=== PATIENT | female | born 1995 | race Caucasian/White ===

== ENCOUNTER → 2016-09-09 | Outpatient (CLI) | payer OTHER ==
[2016-09-09 14:34] LABS: BASO % 0.3 % (0.0-1.0); EOS # 0.1 K/mm3 (0.0-0.50); EOS % 0.8 % (0.0-3.0); LARGE UNSTAINED CELL # 0.2 K/mm3 (0.0-0.4); LARGE UNSTAINED CELL % 1.5 % (0.0-4.0); LYMPH # 1.6 K/mm3 (1.5-6.5); LYMPH % 16.6 % (24.0-44.0); MEAN CORPUSCULAR HEMOGLOBIN 30.4 pg (27.0-33.0); MEAN CORPUSCULAR HGB CONC 33.5 g/dl (32.0-36.5); MEAN CORPUSCULAR VOLUME 90.8 fl (80.0-96.0); MONO # 0.7 K/mm3 (0.0-0.8); MONO % 6.7 % (0.0-5.0); NEUTROPHILS # 7.1 K/mm3 (1.8-7.7); PLATELET COUNT, AUTOMATED 253 k/mm3 (150-450); WHITE BLOOD COUNT 9.6 K/mm3 (4.0-10.0)
[2016-09-10 10:06] LABS: HBsAg Prenatal NEGATIVE (NEGATIVE)
== END ==
LOC: M LRY 12:41
PROVIDERS: ATTEND Advanced Practice Midwife
DX: Z34.81 Encounter for supervision of other normal pregnancy, first trimester (principal)

== ENCOUNTER → 2016-09-16 | Outpatient (CLI) | payer OTHER ==
--- NOTE | 2016-10-01 05:27 | REP ---
Clinical: Dating and viability. Technique: First trimester transabdominal obstetrical ultrasound. Findings: Single live early intrauterine identified. Biometrical measurements correspond to 13 weeks 0 days gestational age with estimated date of delivery 03/24/2017. heart rate equals 157 beats per minute. No gross abnormalities are identified. Impression: Single live early intrauterine at 13 weeks 0 days gestational age. Complete anatomical assessment should be performed at 19-20 weeks. Signed by Ernie Mullins MD 10/01/2016 05:19 A
== END ==
LOC: M LRY 14:06
PROVIDERS: ATTEND Advanced Practice Midwife
DX: Z34.81 Encounter for supervision of other normal pregnancy, first trimester (principal); Z3A.13 13 weeks gestation of pregnancy

== ENCOUNTER → 2016-10-10 | Outpatient (CLI) | payer OTHER ==
[2016-10-10 19:09] LABS: THYROXINE (T4) 12.9 UG/DL (4.5-12.0)
== END ==
LOC: M SMT 13:29
PROVIDERS: ATTEND Advanced Practice Midwife
DX: E03.9 Hypothyroidism, unspecified (principal); E55.9 Vitamin D deficiency, unspecified

== ENCOUNTER → 2016-11-10 | Outpatient (CLI) | payer OTHER ==
--- NOTE | 2016-11-11 04:57 | REP ---
Clinical: Anatomical evaluation. Comparison: 09/16/2016 . Findings: Examination demonstrates a single live intrauterine in breech presentation. motion is identified by technologist. Placenta is noted anteriorly and grade I without evidence for placenta previa or abruption. Amniotic fluid volume is normal. Cervix measures 3.4 cm in length and appears closed. No evidence for nuchal cord. 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 Gestational age by LMP 21 weeks 4 days with WESLEY 03/19/2017 . Gestational age by current measurements 20 weeks 4-day with WESLEY date 03/26/2017 . FHR equals 157 beats per minute. BPD 4.9 cm 20 weeks 6 days HC 18.3 cm 20 weeks 5 days AC 15.8 cm 21 weeks 0 days FL 3.4 cm 20 weeks 5 days HL 3.2 cm 20 weeks 5 days HC/AC ratio 1.16 Estimated weight 379 grams ( 43rd percentile). Anatomical assessment demonstrates normal structures including cranium, choroid plexus, cavum, cerebellum/posterior fossa, facial features, lungs, ventricular outflow tracts, diaphragm, stomach, cord insertion/three-vessel cord, kidneys/bladder, and extremities. Limited evaluation of the heart and spine noted. Impression: 1. Breech presentation demonstrating appropriate interval growth. 2. Uterine synechia. 3. Anatomical limitations as described above may warrant reevaluation. And of the anatomical assessment is complete and normal. Signed by Ernie Mullins MD 11/11/2016 04:49 A
== END ==
LOC: M RAD 14:40
PROVIDERS: ATTEND Advanced Practice Midwife
DX: Z34.82 Encounter for supervision of other normal pregnancy, second trimester (principal); Z3A.21 21 weeks gestation of pregnancy

== ENCOUNTER → 2017-01-11 | Outpatient (CLI) | payer OTHER ==
[2017-01-11 18:47] LABS: MEAN CORPUSCULAR HEMOGLOBIN 32.6 pg (27.0-33.0); MEAN CORPUSCULAR HGB CONC 34.1 g/dl (32.0-36.5); MEAN CORPUSCULAR VOLUME 95.6 fl (80.0-96.0); RED CELL DISTRIBUTION WIDTH 13.1 % (11.5-14.5); WHITE BLOOD COUNT 11.3 K/mm3 (4.0-10.0)
[2017-01-11 19:42] LABS: FREE T4 0.92 NG/DL (0.76-1.46)
== END ==
LOC: M LRY 13:28
PROVIDERS: ATTEND Obstetrics & Gynecology
DX: Z34.82 Encounter for supervision of other normal pregnancy, second trimester (principal)

== ENCOUNTER → 2017-01-13 | Outpatient (CLI) | payer OTHER ==
--- NOTE | 2017-01-13 16:11 | REP ---
Obstetric ultrasound for anatomy follow-up: On the prior study dated 11/10/2016. The anatomy was normal with the exception that there was limited evaluation of the heart, four-chamber view and stool spine. On the study today there is again a single intrauterine gestation. Fetus is in a vertex presentation. There is motion and cardiac activity with a heart rate of 128 - 133 beats per minute. The placenta is anterior. There is no placenta previa or abruptio. Placenta is grade 1. The amniotic fluid volume subjectively is normal. The amniotic fluid index is 13.1 (9.1 - 23.4). The cervix is 3.4 cm in length. By today's ultrasound the gestational age is 29 weeks 5 days with an WESLEY of 03/26/2017. Gestational age by the first ultrasound is 30 weeks 0 days and by LMP 30 weeks 5 days. The weight is 1455 grams (3 pounds, 3 ounces). This is the 36th percentile for 30 weeks 0 days and 24th percentile for 30 weeks 5 days. The four-chamber view of the heart is adequately demonstrated and unremarkable. The spine is adequately demonstrated and unremarkable. The remainder of the anatomy is unremarkable and unchanged from the prior study. Umbilical artery Doppler assessment: SD ratio 3.32. Resistive index 0.70 Diastolic flow velocity 8.5 cm/sec. The four-chamber view of the heart and spine are adequately demonstrated and unremarkable. The remainder of the anatomy is unremarkable but was unremarkable previously. No anomalies are identified. Signed by Eric Burden MD 01/13/2017 04:02 P
== END ==
LOC: M RAD 13:43
PROVIDERS: ATTEND Obstetrics & Gynecology
DX: Z34.83 Encounter for supervision of other normal pregnancy, third trimester (principal); Z3A.29 29 weeks gestation of pregnancy